=== PATIENT | male | born 1995 | race Caucasian/White ===

== ENCOUNTER 2017-08-30 09:43 | Emergency (ER) | payer MEDICAID ==
[2017-08-30] MEDS ORDERED: 0.9 % SODIUM CHLORIDE 1,000 ML BAG IV ONE (09:56)
--- NOTE | 2017-08-30 10:00 | Emergency Department Record ---
History of Present Illness - General Chief Complaint: Cough Stated Complaint: ARAMIS, COUGH, HEAD ACHE, CHEST PAIN Source: Patient, Family Mode of Arrival: Ambulatory Limitations: No limitations - History of Present Illness Initial Comments: 22 yo male presents with cough for 2 days with yellow sputum. No blood in the sputum. He has had subjective low grade fevers. He is not a smoker. No nausea , vomiting or diarrhea. No rash. No edema. He is normally healthy. His mother is a smoker. No asthma or lung disease. MD Complaint: Cough, Fever, Nasal congestion -: Days(s) (2) Consistency: Constant Improves With: Nothing Worsens With: Other (coughing) Associated Symptoms: Cough, Fever - Related Data Home Medications Medication Instructions Recorded Confirmed Last Taken Aripiprazole [Aripiprazole] 20 mg PO DAILY 08/30/17 08/30/17 08/29/17 Previous Rx's Medication Instructions Recorded Azithromycin [Zithromax] 250 mg PO DAILY #4 tab 08/30/17 Oseltamivir Phosphate [Tamiflu] 75 mg PO BID #10 capsule 08/30/17 Allergies Allergy/AdvReac Type Severity Reaction Status Date / Time No Known Drug Allergies Allergy Verified 08/30/17 09:51 Review of Systems Constitutional: Reports: Chills, Fever, Malaise Eyes: Denies: Eye discharge ENT: Reports: Congestion. Denies: Ear pain, Epistaxis Respiratory: Reports: Cough, Other (yellow sputum). Denies: Hemoptysis Cardiovascular: Denies: Chest pain, Palpitations, Syncope Endocrine: Denies: Fatigue, Polydipsia, Polyuria Gastrointestinal: Denies: Abdominal pain, Diarrhea, Nausea, Vomiting Genitourinary: Denies: Dysuria, Frequency, Hematuria, Urgency Musculoskeletal: Reports: Myalgia. Denies: Arthralgia, Back pain Skin: Denies: Bruising, Change in color, Rash Neurological: Denies: Headache, Numbness, Weakness Psychiatric: Denies: Anxiety Hematological/Lymphatic: Denies: Blood Clots, Easy bleeding, Easy bruising, Swollen glands Physical Exam - General General Appearance: Alert, Oriented x3, Cooperative, No acute distress Limitations: No limitations - Head Head exam: Normal inspection - Eye Eye exam: Normal appearance. negative: Conjunctival injection, Scleral icterus - ENT ENT exam: Normal exam, Mucous membranes moist, Normal orophraynx Ear exam: Normal external inspection Nasal Exam: Normal inspection Mouth exam: Normal external inspection Teeth exam: Normal inspection Throat exam: Normal inspection. negative: Tonsillar erythema, Tonsillar exudate - Neck Neck exam: Normal inspection, Full ROM. negative: Tenderness - Respiratory Respiratory exam: Rhonchi (few scattered). negative: Accessory muscle use, Decreased breath sounds, Rales, Stridor, Wheezes - Cardiovascular Cardiovascular Exam: Normal rhythm, Normal heart sounds, Tachycardia Peripheral Pulses: 2+: Radial (R), Radial (L) - GI/Abdominal GI/Abdominal exam: Soft - Rectal Rectal exam: Deferred - exam: Deferred - Extremities Extremities exam: Normal inspection, Full ROM, Normal capillary refill. negative: Pedal edema, Tenderness - Back Back exam: Denies: CVA tenderness (R), CVA tenderness (L) - Neurological Neurological exam: Alert, Oriented X3 - Psychiatric Psychiatric exam: Normal affect, Normal mood - Skin Skin exam: Dry, Intact, Normal color, Warm Course Vital Signs 08/30/17 09:51 Temperature 99.0 F Pulse Rate [ 109 H Pulse Ox Probe] Respiratory 20 Rate Blood Pressure 138/74 [Left Arm] Pulse Ox 93 L - Reevaluation(s) Reevaluation #1: 08/30/17 10:40 The CBC and BMP were reviewed No acute changes on the CBC The CR is minimally elevated at 1.3 The influenza are negative The CXR prelim read is negative for acute changes 08/30/17 10:58 The current room air saturation is 100% on room air Given his clinical findings could be influenza with a false positive he will be treated. Medical Decision Making - Lab Data Result diagrams: 08/30/17 10:15 08/30/17 10:15 Disposition Disposition: Discharge Clinical Impression: Bronchitis Disposition: Home, Self-Care Condition: (1) Good Instructions: Acute Bronchitis (ED) Additional Instructions: Rest and stay well hydrated Return if worse, short of breath or any new concerns Prescriptions: Azithromycin [Zithromax] 250 mg PO DAILY #4 tab Oseltamivir Phosphate [Tamiflu] 75 mg PO BID #10 capsule Forms: Patient Portal Access Time of Disposition: 11:00 Quality - Quality Measures Quality Measures: N/A - Blood Pressure Screening Does Patient Have Any of the Following: No Blood Pressure Classification: Pre-Hypertensive BP Reading Systolic Measurement: 128 Diastolic Measurement: 77 Screening for High Blood Pressure: < Pre-Hypertensive BP, F/U Documented > [ [id number]] Pre-Hypertensive Follow-up Interventions: Referral to alternative/primary care provider.
[2017-08-30 10:15] LABS: INFLUENZA A NEGATIVE (NEGATIVE); INFLUENZA B NEGATIVE (NEGATIVE)
[2017-08-30 10:23] LABS: BASO % 0.2 % (0-6); EOS % 0.7 % (0-6); GRAN % 77.4 % (47-80); HEMATOCRIT 42.4 % (42.0-52.0); HEMOGLOBIN 14.9 gm/dl (14.0-18.0); MEAN CELL VOLUME 84.3 fl (81-97); MEAN CORPUSCULAR HEMOGLOBIN 29.6 pg (27-33); MEAN CORPUSCULAR HGB CONC 35.1 g/dl (32-36); MEAN PLATELET VOLUME 9.1 fl (7.4-10.4); MONO % 8.7 % (0-9); PLATELET COUNT 264 K/uL (130-400); RED BLOOD COUNT 5.03 M/uL (4.40-5.70); WHITE BLOOD COUNT W/O DIFF 8.6 K/uL (4.2-12.2)
[2017-08-30 10:29] LABS: BLOOD UREA NITROGEN 18 mg/dL (6-20); CREATININE 1.3 mg/dL (0.7-1.2); EST GLOMERULAR FILTRATION RATE > 60 mL/min
[2017-08-30 10:31] LABS: GLUCOSE,RANDOM 108 mg/dL (74-109)
[2017-08-30] MEDS ORDERED: OSTELTAMIVIR 75 MG CAP PO ONE (10:56)
[2017-08-30] MEDS ORDERED: AZITHROMYCIN 500 MG TABLET PO ONE (10:56)
--- NOTE | 2017-08-31 08:20 | RADIOLOGY REPORT ---
DATE: 08/30/2017 at 10:32 a.m. EXAM: TWO-VIEW, CHEST. HISTORY: Productive cough. TECHNIQUE: PA and lateral upright views of the chest were obtained. COMPARISON: None. FINDINGS: The heart, mediastinum, and pulmonary vasculature are normal. The lungs are clear. There is no pneumothorax or effusion. The bones are intact. IMPRESSION: NO ACUTE CHEST PATHOLOGY. JOB NUMBER: [id number] [facility]
== END 2017-08-30 11:33 | disposition home or self-care (01) ==
LOC: ER 09:43
DX: J20.9 Acute bronchitis, unspecified (principal); R07.89 Other chest pain; R51 Headache; R06.00 Dyspnea, unspecified
CPT/HCPCS: 71046; 80048; 85025; 87400; 99284; J7030